=== PATIENT | female | born 1945 | race African-American/Black ===

== ENCOUNTER 2022-02-18 08:30 | Inpatient (IN) | payer MEDICAID, MEDICARE ==
[~2022-02-18] VITALS: Ht 160 cm; Wt 60.4 kg
[2022-02-18 10:08] LABS: BASOPHILS % 1.1 % (0.0-2.0); EOSINOPHILS % 2.4 % (0.0-5.0); HEMOGLOBIN. 10.1 g/dL (12.0-16.0); LYMPHOCYTES % 38.2 % (20.0-50.0); MEAN CORPUSCULAR HEMOGLOBIN 27.8 pg (28.0-32.0); MEAN CORPUSCULAR VOLUME 82.4 fL (81.0-99.0); MEAN PLATELET VOLUME 7.8 fl (7.4-10.4); MONOCYTES % 9.2 % (2.0-8.0); NEUTROPHILS % 49.1 % (40.0-76.0); PLATELET 170 x1000/uL (130-400); RED BLOOD CELL COUNT 3.64 mill/uL (4.2-5.4); RED CELL DISTRIBUTION WIDTH 13.6 % (11.6-14.6)
[2022-02-18 10:44] LABS: CHLORIDE 95 mEq/L (98-107)
[2022-02-18] MEDS ORDERED: DOCUSATE SODIUM 100MG CAPSULE PO PRN (14:30)
[2022-02-18] MEDS: AMLODIPINE 10MG TABLET PO SCH (14:30)
[2022-02-18] MEDS ORDERED: ACETAMINOPHEN 325MG TABLET PO PRN (14:30)
[2022-02-18] MEDS ORDERED: DEXTROSE 50% WATER 50ML SYRINGE IV PRN (14:30)
[2022-02-18] MEDS ORDERED: TRAMADOL 50MG TABLET PO PRN (14:30)
[2022-02-18] MEDS ORDERED: ONDANSETRON HCL 4MG/2ML INJ IV PRN (14:30)
[2022-02-18] MEDS ORDERED: IPRATROPIUM/ALBUTEROL 0.5-3(2.5)MG/3ML NEB NEB PRN (14:30)
[2022-02-18] MEDS ORDERED: ENOXAPARIN 40MG/0.4ML SYR SUBCUT SCH (14:30)
[2022-02-18] MEDS ORDERED: NITROGLYCERIN 0.4MG TABLET SL SL PRN (14:30)
[2022-02-18] MEDS ORDERED: GUAIFENESIN 200MG/10ML SUGAR FREE UDC PO PRN (14:30)
[2022-02-18] MEDS ORDERED: MAGNESIUM/ALUMINUM HYDROXIDE/SIMETHICONE 30ML UDC PO PRN (14:30)
[2022-02-18] MEDS ORDERED: NALOXONE HCL 0.4MG/ML VIAL IV PRN (14:45)
[2022-02-18] MEDS: ENOXAPARIN 30MG/0.3ML SYR SUBCUT SCH (15:37)
[2022-02-18 16:29] LABS: T4 FREE 1.2 ng/dL (0.76-1.46)
[2022-02-18 16:49] LABS: FOLIC ACID (FOLATE) SERUM 14.2 ng/mL (>5.38)
[2022-02-18] MEDS: BLOOD SUGAR DIAGNOSTIC STRIP TEST SCH ×2 (17:00→21:05)
[2022-02-18] MEDS: INSULIN LISPRO 100 UNITS/ML SUBCUT SCH ×2 (18:20→21:00)
[2022-02-18] MEDS ORDERED: LISINOPRIL 20MG TABLET PO SCH (21:00)
[2022-02-18] MEDS: FAMOTIDINE 20MG TABLET PO SCH (21:30)
[2022-02-18] MEDS: ATORVASTATIN CALCIUM 20MG TABLET PO SCH (21:30)
[2022-02-18] MEDS: DONEPEZIL HCL 5MG TABLET PO SCH (21:31)
[2022-02-18 23:00] VITALS: BP 148/71
[2022-02-18 23:10] VITALS: BP 148/71
[2022-02-19] VITALS (10 sets, daily range): BP systolic 136–203; BP diastolic 66–84
[2022-02-19] MEDS ORDERED: LOSA50TA41 PO (00:11)
[2022-02-19] MEDS ORDERED: PROP10TA10 PO (00:12)
[2022-02-19] MEDS ORDERED: GABA-290 PO (00:13)
[2022-02-19] MEDS ORDERED: AMLO10TA80 PO (00:13)
[2022-02-19] MEDS ORDERED: DONE5TAB33 PO (00:15)
[2022-02-19 00:19] LABS: *AMPHETAMINES SCREEN URINE NEGATIVE (NEGATIVE); *BARBITURATES SCREEN URINE NEGATIVE (NEGATIVE); *BENZODIAZEPINES SCREEN URINE NEGATIVE (NEGATIVE); *COCAINE SCREEN URINE NEGATIVE (NEGATIVE); CANNABINOID URINE SCREEN NEGATIVE (NEGATIVE); METHADONE URINE SCREEN NEGATIVE (NEGATIVE); OPIATES URINE SCREEN NEGATIVE (NEGATIVE); PHENCYCLIDINE URINE SCREEN NEGATIVE (NEGATIVE)
[2022-02-19] MEDS: ZOLPIDEM TARTRATE 5MG TABLET PO PRN (00:20)
[2022-02-19 01:41] LABS: CREATINE KINASE 62 IU/L (26-192); CREATINE KINASE MB FRACTION < 1.0 ng/mL (0.5-3.6)
[2022-02-19] MEDS: BLOOD SUGAR DIAGNOSTIC STRIP TEST SCH ×4 (06:32→21:00)
[2022-02-19] MEDS: INSULIN LISPRO 100 UNITS/ML SUBCUT SCH ×4 (06:40→21:00)
[2022-02-19 07:12] LABS: BASOPHILS % 0.9 % (0.0-2.0); EOSINOPHILS % 1.4 % (0.0-5.0); HEMATOCRIT. 30.9 % (36.0-48.0); HEMOGLOBIN. 10.2 g/dL (12.0-16.0); LYMPHOCYTES % 39.5 % (20.0-50.0); MEAN CORPUSCULAR HEMOGLOBIN 27.6 pg (28.0-32.0); MEAN CORPUSCULAR VOLUME 83.6 fL (81.0-99.0); MONOCYTES % 8.5 % (2.0-8.0); NEUTROPHILS % 49.7 % (40.0-76.0); PLATELET 162 x1000/uL (130-400); RED CELL DISTRIBUTION WIDTH 13.8 % (11.6-14.6)
[2022-02-19 07:26] LABS: CHLORIDE 97 mEq/L (98-107)
[2022-02-19 07:44] LABS: CREATINE KINASE 52 IU/L (26-192); CREATINE KINASE MB FRACTION < 1.0 ng/mL (0.5-3.6); PHOSPHORUS 4.8 mg/dL (2.5-4.9)
[2022-02-19] MEDS ORDERED: IODIXANOL 320MG/ML 100 ML BOTTLE IV ONE (08:37)
[2022-02-19] MEDS ORDERED: LIDOCAINE HCL/PF 1% 10 MG/ML 5ML VIAL ONE ×2 (08:37→09:41)
[2022-02-19] MEDS ORDERED: HEPARIN 1000 UNITS/ML 10ML ONE (08:38)
[2022-02-19] MEDS ORDERED: FENTANYL CITRATE/PF 50MCG/ML 2ML VIAL ONE (09:00)
[2022-02-19] MEDS ORDERED: VERAPAMIL HCL 2.5 MG/1 ML 2ML VIAL IV ONE (09:00)
[2022-02-19] MEDS ORDERED: MIDAZOLAM HCL 2 MG/2 ML VIAL ONE (09:00)
[2022-02-19] MEDS ORDERED: DIPHENHYDRAMINE 50MG/ML VIAL ONE (09:07)
[2022-02-19] MEDS ORDERED: ATROPINE SULFATE 1MG/10ML SYR IV PRN (10:30)
[2022-02-19] MEDS ORDERED: ACETAMINOPHEN 325MG TABLET PO PRN (10:30)
[2022-02-19] MEDS ORDERED: NICARDIPINE 100MCG/ML 10ML VIAL (CATH LAB) IV ONE (11:00)
[2022-02-19] MEDS ORDERED: NITROGLYCERIN 50MCG/ML 10ML VIAL (CATH LAB) IV ONE (11:00)
[2022-02-19] MEDS: ACETAMINOPHEN 325MG TABLET PO PRN (12:21)
[2022-02-19] MEDS: ENOXAPARIN 30MG/0.3ML SYR SUBCUT SCH (15:00)
[2022-02-19] MEDS: GABAPENTIN 300MG CAPSULE PO SCH ×2 (17:00→18:07)
[2022-02-19] MEDS: PROPRANOLOL HCL 10MG TABLET PO SCH (18:05)
[2022-02-19] MEDS: LOSARTAN POTASSIUM 50 MG TABLET PO SCH (18:05)
[2022-02-19] MEDS: AMLODIPINE 10MG TABLET PO SCH (18:06)
[2022-02-19] MEDS: ATORVASTATIN CALCIUM 20MG TABLET PO SCH (20:11)
[2022-02-19] MEDS: DONEPEZIL HCL 5MG TABLET PO SCH (20:11)
[2022-02-19] MEDS: FAMOTIDINE 20MG TABLET PO SCH (20:11)
[2022-02-20] VITALS: BP 190/69
[2022-02-20] MEDS: CLONIDINE 0.1MG TABLET PO PRN ×2 (00:03→20:56)
[2022-02-20 04:00] VITALS: BP 150/85
[2022-02-20] MEDS: BLOOD SUGAR DIAGNOSTIC STRIP TEST SCH ×4 (06:21→20:24)
[2022-02-20 07:06] LABS: EOSINOPHILS % 1.5 % (0.0-5.0); HEMATOCRIT. 31.4 % (36.0-48.0); HEMOGLOBIN. 10.2 g/dL (12.0-16.0); LYMPHOCYTES % 33.5 % (20.0-50.0); MEAN CORPUSCULAR HEMOGLOBIN 27.3 pg (28.0-32.0); MEAN CORPUSCULAR VOLUME 83.7 fL (81.0-99.0); MEAN PLATELET VOLUME 7.8 fl (7.4-10.4); MONOCYTES % 10.7 % (2.0-8.0); NEUTROPHILS % 53.3 % (40.0-76.0); PLATELET 165 x1000/uL (130-400); RED BLOOD CELL COUNT 3.75 mill/uL (4.2-5.4); RED CELL DISTRIBUTION WIDTH 13.8 % (11.6-14.6)
[2022-02-20 07:17] LABS: PHOSPHORUS 3.6 mg/dL (2.5-4.9)
[2022-02-20] MEDS: INSULIN LISPRO 100 UNITS/ML SUBCUT SCH ×4 (07:40→20:24)
[2022-02-20 08:00] VITALS: BP 131/51
[2022-02-20] MEDS: GABAPENTIN 300MG CAPSULE PO SCH ×2 (08:21→17:33)
[2022-02-20] MEDS: LOSARTAN POTASSIUM 50 MG TABLET PO SCH (08:21)
[2022-02-20] MEDS: AMLODIPINE 10MG TABLET PO SCH (08:22)
[2022-02-20] MEDS: PROPRANOLOL HCL 10MG TABLET PO SCH (08:22)
[2022-02-20 12:00] VITALS: BP 135/57
[2022-02-20] MEDS: ENOXAPARIN 30MG/0.3ML SYR SUBCUT SCH (13:55)
[2022-02-20 16:00] VITALS: BP 152/63
[2022-02-20 20:00] VITALS: BP 169/71
[2022-02-20] MEDS: FAMOTIDINE 20MG TABLET PO SCH (20:23)
[2022-02-20] MEDS: ATORVASTATIN CALCIUM 20MG TABLET PO SCH (20:23)
[2022-02-20] MEDS: DONEPEZIL HCL 5MG TABLET PO SCH (20:23)
[2022-02-20] MEDS: ZOLPIDEM TARTRATE 5MG TABLET PO PRN (23:31)
[2022-02-21] VITALS: BP 147/62
[2022-02-21] MEDS ORDERED: ALBUTEROL (0.083%) 2.5MG/3ML NEB HHN PRN (00:15)
[2022-02-21] MEDS ORDERED: IPRATROPIUM BROMIDE (0.02%) 0.5MG/2.5ML NEB HHN PRN (00:15)
[2022-02-21 04:00] VITALS: BP 148/61
[2022-02-21] MEDS: ACETAMINOPHEN 325MG TABLET PO PRN (06:53)
[2022-02-21] MEDS: BLOOD SUGAR DIAGNOSTIC STRIP TEST SCH ×4 (07:10→20:39)
[2022-02-21] MEDS: INSULIN LISPRO 100 UNITS/ML SUBCUT SCH ×4 (07:40→20:39)
[2022-02-21 08:00] VITALS: BP 163/65
[2022-02-21] MEDS: LOSARTAN POTASSIUM 50 MG TABLET PO SCH (08:49)
[2022-02-21] MEDS: GABAPENTIN 300MG CAPSULE PO SCH ×2 (08:53→17:41)
[2022-02-21] MEDS: AMLODIPINE 10MG TABLET PO SCH (08:53)
[2022-02-21] MEDS: PROPRANOLOL HCL 10MG TABLET PO SCH (08:54)
[2022-02-21 12:00] VITALS: BP 137/58
[2022-02-21] MEDS: ENOXAPARIN 30MG/0.3ML SYR SUBCUT SCH (14:57)
[2022-02-21 16:00] VITALS: BP 142/58
[2022-02-21 20:16] VITALS: BP 144/72
[2022-02-21] MEDS: ATORVASTATIN CALCIUM 20MG TABLET PO SCH (20:39)
[2022-02-21] MEDS: FAMOTIDINE 20MG TABLET PO SCH (20:39)
[2022-02-21] MEDS: DONEPEZIL HCL 5MG TABLET PO SCH (20:39)
[2022-02-22] VITALS: BP 177/71
[2022-02-22] MEDS: ACETAMINOPHEN 325MG TABLET PO PRN (00:50)
[2022-02-22 04:00] VITALS: BP 177/63
[2022-02-22] MEDS: BLOOD SUGAR DIAGNOSTIC STRIP TEST SCH ×2 (07:10→11:34)
[2022-02-22] MEDS: INSULIN LISPRO 100 UNITS/ML SUBCUT SCH ×2 (07:40→11:40)
[2022-02-22 08:00] VITALS: BP 156/68
[2022-02-22] MEDS: LOSARTAN POTASSIUM 50 MG TABLET PO SCH (08:17)
[2022-02-22] MEDS: PROPRANOLOL HCL 10MG TABLET PO SCH (08:17)
[2022-02-22] MEDS: AMLODIPINE 10MG TABLET PO SCH (08:18)
[2022-02-22] MEDS: GABAPENTIN 300MG CAPSULE PO SCH (08:18)
[2022-02-22] MEDS ORDERED: ATOR20TA PO (10:00)
[2022-02-22] MEDS ORDERED: LOSARTAN POTASSIUM 50 MG TABLET PO SCH (21:00)
== END 2022-02-22 12:45 | disposition home health service (06) | DRG 286 ==
LOC: ER 08:30 → 8WST 11:39 → EDBEDREQ 11:43 → EDBEDREQTM 11:43 → ENRESERV 22:16
PROVIDERS: ADMIT Internal Medicine; ATTEND Internal Medicine
PROC: 4A023N7 Measurement of Cardiac Sampling and Pressure, Left Heart, Percutaneous Approach (ICD-10-PCS; principal; 2022-02-19)
PROC: B211YZZ Fluoroscopy of Multiple Coronary Arteries using Other Contrast (ICD-10-PCS; 2022-02-19)
PROC: B310YZZ Fluoroscopy of Thoracic Aorta using Other Contrast (ICD-10-PCS; 2022-02-19)
PROC: B41FYZZ Fluoroscopy of Right Lower Extremity Arteries using Other Contrast (ICD-10-PCS; 2022-02-19)
PROC: 5A1D70Z Performance of Urinary Filtration, Intermittent, Less than 6 Hours Per Day (ICD-10-PCS; 2022-02-19)
DX: I20.0 Unstable angina (principal); N18.6 End stage renal disease; I13.2 Hypertensive heart and chronic kidney disease with heart failure and with stage 5 chronic kidney disease, or end stage renal disease; E44.0 Moderate protein-calorie malnutrition; Z20.822 Contact with and (suspected) exposure to COVID-19; D63.8 Anemia in other chronic diseases classified elsewhere; D72.819 Decreased white blood cell count, unspecified; E11.22 Type 2 diabetes mellitus with diabetic chronic kidney disease; E78.5 Hyperlipidemia, unspecified; E87.6 Hypokalemia; E88.09 Other disorders of plasma-protein metabolism, not elsewhere classified; F03.90 Unspecified dementia, unspecified severity, without behavioral disturbance, psychotic disturbance, mood disturbance, and anxiety; I16.0 Hypertensive urgency; M19.90 Unspecified osteoarthritis, unspecified site; I50.9 Heart failure, unspecified; Z85.3 Personal history of malignant neoplasm of breast; Z82.49 Family history of ischemic heart disease and other diseases of the circulatory system; Z79.82 Long term (current) use of aspirin; Z85.42 Personal history of malignant neoplasm of other parts of uterus; Z90.710 Acquired absence of both cervix and uterus; Z92.21 Personal history of antineoplastic chemotherapy; Z92.3 Personal history of irradiation; Z99.2 Dependence on renal dialysis; I25.2 Old myocardial infarction; Z79.4 Long term (current) use of insulin
CPT/HCPCS: 36415; 71045; 80048; 80053; 80061; 80305; 82550; 82553; 82607; 82746; 82962; 83036; 83540; 83550; 83735; 83880; 84100; 84439; 84443; 84484; 85025; 87426; 90935; 93005; 93306; 93458; 93970; 97162; 97166; 99285; C1760; C1769; C1887; C1893; J1200; J1644; J1650; J1815; J2250; J3010; J3490; Q9967

== ENCOUNTER 2024-03-20 08:12 | Inpatient (IN) | payer MEDICARE, MEDICAID ==
[~2024-03-20] VITALS: Ht 154.9 cm; Wt 71.2 kg
[2024-03-20] VITALS (8 sets, daily range): BP systolic 186–230; BP diastolic 67–78; PULSE 70–80; RESP 18–26; TEMP 36.7; O2SAT 100
[~2024-03-20 08:12] MED LIST: AMLO10TA80 PO; ASPI-1160 PO; ATOR20TA PO; CALC0.253 PO; CARV25TA47 PO; CHOL400D7 PO; CLON0.2T PO; DONE5TAB33 PO; GABA-529 PO; HYDR50TA40 PO; LOPE2TAB26 PO; LOSA100T33 PO; METO-539 PO; MINO2.5T19 PO; NIFE90TA69 PO; TC1C15 TP
[2024-03-20] MEDS: METHYLPREDNISOLONE SOD SUCC 125MG/2ML (ACT-O-VIAL) IV ONE (08:47)
[2024-03-20] MEDS: ENALAPRIL 1.25MG/ML VIAL 1ML IV NR (08:48)
[2024-03-20] MEDS: ENALAPRIL 2.5MG/2ML VIAL 2ML IV ONE (08:51)
[2024-03-20] MEDS: NITROGLYCERIN 0.4MG TABLET SL SL ONE (08:52)
[2024-03-20 09:05] LABS: BASOPHILS % 0.7 % (0.0-2.0); EOSINOPHILS % 1.1 % (0.0-5.0); HEMATOCRIT. 30.8 % (36.0-48.0); HEMOGLOBIN. 10.1 g/dL (12.0-16.0); LYMPHOCYTES % 40.5 % (20.0-50.0); MEAN CORPUSCULAR HEMOGLOBIN 27.3 pg (28.0-32.0); MEAN CORPUSCULAR HGB CONC 32.8 g/dL (31.0-37.0); MEAN CORPUSCULAR VOLUME 83.3 fL (81.0-99.0); MEAN PLATELET VOLUME 8.8 fl (7.4-10.4); MONOCYTES % 5.8 % (2.0-8.0); NEUTROPHILS % 51.9 % (40.0-76.0); PLATELET 180 x1000/uL (130-400); RED CELL DISTRIBUTION WIDTH 16.9 % (11.6-14.6); WHITE BLOOD COUNT 5.5 x1000/uL (4.5-11.0)
[2024-03-20 09:32] LABS: CHLORIDE 97 mEq/L (98-107); POTASSIUM 4.5 mEq/L (3.5-5.1); SODIUM 133 mEq/L (136-145)
[2024-03-20 09:33] LABS: CALCIUM 7.6 mg/dL (8.7-10.4); CARBON DIOXIDE 25 mEq/L (21-32)
[2024-03-20 09:38] LABS: CREATININE 4.8 mg/dL (0.6-1.0); GLUCOSE 120 mg/dL (70-105)
[2024-03-20 09:39] LABS: UREA NITROGEN BLOOD 37 mg/dL (9-23)
[2024-03-20 09:40] LABS: ALANINE AMINOTRANSFERASE 148 IU/L (10-49); ALBUMIN 3.6 g/dL (3.2-4.8); ASPARTATE AMINOTRANSFERASE 240 IU/L (<34); BILIRUBIN DIRECT 0.1 mg/dL (<=3.0)
[2024-03-20 09:41] LABS: BILIRUBIN TOTAL 0.3 mg/dL (0.1-1.0); PROTEIN TOTAL 7.2 g/dL (6.0-8.3)
[2024-03-20] MEDS: IPRATROPIUM BROMIDE (0.02%) 0.5MG/2.5ML NEB HHN ONE (09:49)
[2024-03-20] MEDS: ALBUTEROL (0.083%) 2.5MG/3ML NEB HHN ONE (09:49)
[2024-03-20 09:52] LABS: TROPONIN I HIGH SENSITIVITY 61 ng/L (3.0-34)
[2024-03-20] MEDS: HYDRALAZINE 20MG/ML VIAL IV NR (13:36)
[2024-03-20] MEDS ORDERED: GUAIFENESIN 200MG/10ML SUGAR FREE UDC PO PRN (14:30)
[2024-03-20] MEDS ORDERED: ONDANSETRON HCL 4MG/2ML INJ IV PRN (14:30)
[2024-03-20] MEDS ORDERED: IPRATROPIUM/ALBUTEROL 0.5-3(2.5)MG/3ML NEB HHN PRN (14:30)
[2024-03-20] MEDS ORDERED: ACETAMINOPHEN 650MG SUPP PR PRN (14:30)
[2024-03-20] MEDS: ASPIRIN 81MG TABLET PO NR (15:33)
[2024-03-20] MEDS: METOPROLOL TARTRATE 50MG TABLET PO SCH (15:33)
[2024-03-20 15:37] LABS: HEPATITIS B SURFACE ANTIGEN NEGATIVE (Negative)
[2024-03-20 15:57] LABS: HEPATITIS A AB IGM NEGATIVE (Negative)
[2024-03-20 15:58] LABS: HEPATITIS B CORE AB IGM NEGATIVE (Negative); HEPATITIS C AB NON REACTIVE (Neg) (Negative)
[2024-03-20] MEDS: CEFTRIAXONE 1GM/50ML 50 ML IV SCH (16:40)
[2024-03-20] MEDS ORDERED: AZITHROMYCIN 500MG/250ML 250 ML IV SCH (17:00)
[2024-03-20] MEDS: GABAPENTIN 100MG CAPSULE PO SCH (18:50)
[2024-03-20] MEDS: ENOXAPARIN 30MG/0.3ML SYR SUBCUT SCH (18:51)
[2024-03-20] MEDS: HYDRALAZINE HCL 100MG TABLET PO SCH (20:06)
[2024-03-20] MEDS: CARVEDILOL 12.5MG TABLET PO SCH (20:06)
[2024-03-20] MEDS: DONEPEZIL HCL 5MG TABLET PO SCH (21:01)
[2024-03-20] MEDS: ATORVASTATIN CALCIUM 20MG TABLET PO SCH (21:01)
[2024-03-20] MEDS: AZITHROMYCIN 500MG/250ML 250 ML IV SCH (22:04)
[2024-03-20] MEDS: CLONIDINE 0.1MG TABLET PO PRN (22:20)
[2024-03-20 23:48] LABS: CREATINE KINASE MB FRACTION 2.4 ng/mL (0.5-3.6)
[2024-03-21] VITALS (20 sets, daily range): BP systolic 103–166; BP diastolic 44–83; PULSE 58–74; RESP 8–27; TEMP 36.1–36.7; O2SAT 99–100
[2024-03-21] MEDS ORDERED: AMLODIPINE 10MG TABLET PO SCH (09:00)
[2024-03-21] MEDS: FUROSEMIDE 40MG TABLET PO SCH (09:08)
[2024-03-21] MEDS: LOSARTAN 100 MG TABLET PO SCH (09:09)
[2024-03-21] MEDS: ASPIRIN 81MG TABLET PO SCH (09:10)
[2024-03-21] MEDS: PANTOPRAZOLE 40MG DR TABLET PO SCH (09:10)
[2024-03-21] MEDS: CLONIDINE 0.2MG TABLET PO SCH (09:14)
[2024-03-21] MEDS: NIFEDIPINE XL 90MG TAB PO SCH (09:14)
[2024-03-21] MEDS: CEFTRIAXONE 1GM/50ML 50 ML IV SCH (11:50)
[2024-03-21 23:06] LABS: CLARITY URINE TURBID (CLEAR); COLOR URINE YELLOW (YELLOW); GLUCOSE URINE NEGATIVE (NEGATIVE); KETONES URINE NEGATIVE (NEGATIVE); LEUKOCYTE ESTERASE URINE 3+ (NEGATIVE); NITRITE URINE NEGATIVE (NEGATIVE); OCCULT BLOOD URINE NEGATIVE (NEGATIVE); PROTEIN URINE 2+ (NEGATIVE); SPECIFIC GRAVITY URINE 1.007 (1.005-1.030); UROBILINOGEN URINE 0.2 E.U./dL (0.2-1.0)
[2024-03-21 23:28] LABS: BACTERIA URINE 3+; RBC URINE 0-2 /hpf (0-2); SQUAMOUS EPITHELIAL CELL URINE 2+ /lpf (RARE/1+)
[2024-03-21 23:29] LABS: *AMPHETAMINES SCREEN URINE NEGATIVE (NEGATIVE); *BARBITURATES SCREEN URINE NEGATIVE (NEGATIVE); *BENZODIAZEPINES SCREEN URINE NEGATIVE (NEGATIVE); *COCAINE SCREEN URINE NEGATIVE (NEGATIVE); CANNABINOID URINE SCREEN NEGATIVE (NEGATIVE); ECSTASY MDMA SCREEN URINE NEGATIVE (NEGATIVE); METHADONE URINE SCREEN NEGATIVE (NEGATIVE); OPIATES URINE SCREEN NEGATIVE (NEGATIVE); PHENCYCLIDINE URINE SCREEN NEGATIVE (NEGATIVE)
[2024-03-22] VITALS (11 sets, daily range): BP systolic 93–179; BP diastolic 47–89; PULSE 55–71; RESP 11–27; TEMP 35.6–37; O2SAT 98–100
[2024-03-22] MEDS: HYDRALAZINE 20MG/ML VIAL IV NR (07:09)
[2024-03-22 07:24] LABS: POTASSIUM 4.5 mEq/L (3.5-5.1)
[2024-03-22 07:25] LABS: CALCIUM 7.2 mg/dL (8.7-10.4)
[2024-03-22 07:30] LABS: CREATININE 4.3 mg/dL (0.6-1.0)
[2024-03-22 07:39] LABS: HEMATOCRIT 24.8 % (36.0-48.0); HEMOGLOBIN 8.2 g/dL (12.0-16.0); MEAN CORPUSCULAR HEMOGLOBIN 27.3 pg (28.0-32.0); MEAN CORPUSCULAR VOLUME 82.8 fL (81.0-99.0); PLATELET 112 x1000/uL (130-400); RED BLOOD CELL COUNT 2.99 mill/uL (4.2-5.4); RED CELL DISTRIBUTION WIDTH 16.6 % (11.6-14.6); WHITE BLOOD COUNT 3.9 x1000/uL (4.5-11.0)
[2024-03-22] MEDS: AZITHROMYCIN 500 MG TABLET PO SCH (17:53)
[2024-03-23] VITALS (17 sets, daily range): BP systolic 98–205; BP diastolic 47–67; PULSE 55–63; RESP 10–21; TEMP 35–36.6; O2SAT 95–100
[2024-03-23] MEDS: HYDRALAZINE 20MG/ML VIAL IV NR (04:46)
[2024-03-23 07:22] LABS: HEMATOCRIT 25.5 % (36.0-48.0); HEMOGLOBIN 8.5 g/dL (12.0-16.0); MEAN CORPUSCULAR HEMOGLOBIN 27.4 pg (28.0-32.0); MEAN CORPUSCULAR HGB CONC 33.3 g/dL (31.0-37.0); MEAN CORPUSCULAR VOLUME 82.3 fL (81.0-99.0); PLATELET 136 x1000/uL (130-400); RED CELL DISTRIBUTION WIDTH 16.3 % (11.6-14.6); WHITE BLOOD COUNT 3.2 x1000/uL (4.5-11.0)
[2024-03-23 07:53] LABS: POTASSIUM 4.4 mEq/L (3.5-5.1)
[2024-03-23 07:54] LABS: CALCIUM 7.1 mg/dL (8.7-10.4)
[2024-03-23 09:53] LABS: CREATININE 5.1 mg/dL (0.6-1.0)
[2024-03-23] MEDS: EPOETIN ALFA-EPBX 4,000 UNIT/ML VIAL SUBCUT SCH (22:19)
[2024-03-23] MEDS: DOCUSATE SODIUM 100MG CAPSULE PO PRN (22:25)
[2024-03-24] VITALS: BP 180/66; PULSE 66; RESP 15; TEMP 36.5; O2SAT 98
[2024-03-24 04:00] VITALS: BP 219/68; PULSE 83; RESP 16; TEMP 37.2; O2SAT 98
[2024-03-24] MEDS: NITROGLYCERIN OINT 1GM/INCH UDPKT TD NR (04:50)
[2024-03-24 08:00] VITALS: BP 200/59; PULSE 68; RESP 16; TEMP 36.8; O2SAT 98
[2024-03-24 12:00] VITALS: BP 116/49; PULSE 61; RESP 10; TEMP 36.7; O2SAT 95
[2024-03-24 13:56] VITALS: BP 116/49; PULSE 61; TEMP 98; O2SAT 95
== END 2024-03-24 14:45 | disposition home health service (06) | DRG 280 ==
LOC: ER 08:12 → EDBEDREQ 12:26 → EDBEDREQSVC 17:14 → 5EST 17:44 → MICUSO 18:11 → 5EST 18:13 → 3WST 03-22 06:25
PROVIDERS: ADMIT Hospitalist; ATTEND Hospitalist
PROC: 5A09357 Assistance with Respiratory Ventilation, Less than 24 Consecutive Hours, Continuous Positive Airway Pressure (ICD-10-PCS; 2024-03-20)
PROC: 5A1D70Z Performance of Urinary Filtration, Intermittent, Less than 6 Hours Per Day (ICD-10-PCS; principal; 2024-03-21)
PROC: 5A1D70Z Performance of Urinary Filtration, Intermittent, Less than 6 Hours Per Day (ICD-10-PCS; 2024-03-23)
DX: I13.2 Hypertensive heart and chronic kidney disease with heart failure and with stage 5 chronic kidney disease, or end stage renal disease (principal); I50.33 Acute on chronic diastolic (congestive) heart failure; I21.A1 Myocardial infarction type 2; J96.01 Acute respiratory failure with hypoxia; N18.6 End stage renal disease; I16.1 Hypertensive emergency; E87.1 Hypo-osmolality and hyponatremia; J90 Pleural effusion, not elsewhere classified; I31.39 Other pericardial effusion (noninflammatory); J84.9 Interstitial pulmonary disease, unspecified; B02.29 Other postherpetic nervous system involvement; E78.5 Hyperlipidemia, unspecified; E11.9 Type 2 diabetes mellitus without complications; D63.1 Anemia in chronic kidney disease; E11.22 Type 2 diabetes mellitus with diabetic chronic kidney disease; I25.10 Atherosclerotic heart disease of native coronary artery without angina pectoris; J44.9 Chronic obstructive pulmonary disease, unspecified; H91.93 Unspecified hearing loss, bilateral; R74.01 Elevation of levels of liver transaminase levels; Z85.42 Personal history of malignant neoplasm of other parts of uterus; Z90.710 Acquired absence of both cervix and uterus; Z99.2 Dependence on renal dialysis; Z79.899 Other long term (current) drug therapy; Z86.73 Personal history of transient ischemic attack (TIA), and cerebral infarction without residual deficits; Z85.3 Personal history of malignant neoplasm of breast; Z91.010 Allergy to peanuts
CPT/HCPCS: 36415; 71045; 76604; 76700; 80048; 80076; 80305; 81003; 82550; 82553; 82803; 83036; 83735; 83880; 84484; 85025; 85027; 85651; 86705; 86709; 87340; 90935; 93005; 93970; 94070; 94660; 99291; A4606; J0360; J0456; J0696; J0885; J1650; J2919; J3490